=== PATIENT | male | born 1960 | race Caucasian/White ===

== ENCOUNTER → 2017-01-23 | Day surgery (SDC) | payer BC ==
[~2017-01-23] MED LIST: ATOR20TA58 PO; CARI350T PO; CLON0.5T3 PO; HYDR-2766 PO; IV RINGERS,LACTATED 1000ML 1,000 ML IV SCH; LIDOCAINE 1% PF 2 ML VIAL. ID PRN; LIDOCAINE 2% PF Vial for OR 5 ML VIAL. ONE; MIDAZOLAM HCL/PF 2 MG/2 ML VIAL. IV PRN; PROPOFOL 40 ML IV ONE; TRAZ100T12 PO; fentaNYL PF VIAL 100 MCG/2 ML VIAL IV PRN
--- NOTE | 2017-01-23 12:43 | PDOC1 ---
History and Physical Date of Admission Date of Admission DATE: 01/23/17 TIME: 12:38 Source Source: Chart review, Patient History of Present Illness History of Present Illness 56 y/o male here for CRC screening. No prior. Denies abdominal pain, diarrhea , constipation, hematochezia, melena, wt. loss, anorexia, nausea or vomiting. GIFH negative. Occasional heartburn w/o dysphagia. No PUD, GB, liver or pancreatic history. Smokes 4-5 cigs/day. Occasional alcohol/NSAID use. Past Medical History Cardiovascular: Hyperlipidemia Musculoskeletal: low back pain (HNP) Past Surgical History Past Surgical History: Other (lumbar laminectomy with fusion, no hardware) Family History Family History: Other (no significant) Social History Smoke: <1 pack per day ALCOHOL: occassional Drugs: None Current Medications Current Medications Current Medications Midazolam HCl (Versed) 2 mg PRN 1X PRN IV PRIOR TO PROCEDURE; Start 01/23/17 at 12:15; Stop 01/23/17 at 23:00 Fentanyl Citrate (Fentanyl 2ml Vial) 25 mcg PRN Q5MIN PRN IV X 2 DOSES FOR PAIN ; Start 01/23/17 at 12:15; Stop 01/23/17 at 23:00 Fentanyl Citrate (Fentanyl 2ml Vial) 50 mcg PRN Q5MIN PRN IV X 2 DOSES FOR PAIN ; Start 01/23/17 at 12:15; Stop 01/23/17 at 23:00 Ringer's Solution 1,000 ml @ 125 mls/hr Q8H IV Last administered on t 12:04; Start 01/23/17 at 12:04; Stop 01/23/17 at 23:00 Lidocaine HCl (Xylocaine-Mpf 1% Vial) 2 ml 1X PRN PRN ID IV START; Start 01/23 at 12:15; Stop 01/23/17 at 23:00 Propofol 60 ml @ As Directed STK-MED ONCE IV ; Start 01/23/17 at 12:13; Stop 01/23/17 at 12:14; Status DC Lidocaine HCl (Lidocaine Pf 2% Vial) 5 ml STK-MED ONCE .ROUTE ; Start 01/23/17 at 12:13; Stop 01/23/17 at 12:14; Status DC Active Scripts Active Reported Hydrocodone-Apap 10-325 (Hydrocodone Bit/Acetaminophen) 1 Each Tablet 1 Tab PO PRN Q6HRS PRN Soma (Carisoprodol) 350 Mg Tablet 350 Mg PO TID&HS Clonazepam 0.5 Mg Tablet 0.5 Mg PO TID Trazodone Hcl 100 Mg Tablet 100 Mg PO HS Atorvastatin Calcium 20 Mg Tablet 20 Mg PO HS Allergies Allergies: Coded Allergies: No Known Drug Allergies (Unverified , 01/23/17) ROS Review of System Negative save chronic back pain. Physical Exam General: Alert, Oriented X3, Cooperative, No acute distress Lungs: Clear to auscultation Heart: S1S2, RRR, no gallops, no murmurs Abdomen: Normal bowel sounds, Soft, No tenderness, No hepatosplenomegaly, No masses Rectal Exam: deferred (to procedure) Extremities: No cyanosis, No edema Skin: No significant lesion Neuro: Normal speech, Strength at 5/5 X4 ext, Normal tone, Sensation intact, Cranial nerves 3-12 NL, Reflexes 2+ Psych/Mental Status: Mental status NL, Mood NL Vitals Vitals Vital Signs Date Time Temp Pulse Resp B/P (MAP) Pulse Ox O2 Delivery O2 Flow Rate FiO2 01/23/17 12:20 99.0 54 20 97 99.0 VTE Prophylaxis Ordered VTE Prophylaxis Devices: No VTE Pharmacological Prophylaxi: No Assessment/Plan Assessment/Plan IMP: Average risk for CRC. PLAN: Screening colonoscopy. EDIN AGUAYO MD Jan 23, 2017 12:43
--- NOTE | 2017-01-23 13:15 | PDOC4 ---
PROCEDURE Procedure Colonoscopy Ind: Screening, average risk. Meds: per anesthesia Findings: CHANI normal. Scope advanced to cecum. Mucosa normal. No polyps, tics, etc. Internal hemorrhoids on retroflex. Kraen. well. IMP: Internal hemorrhoids, otherwise normal exam. REC: Resume home meds/diet. F/u with me prn. No treatment needed for asymptomatic hemorrhoids. Repeat exam in 10 years for screening. EDIN AGUAYO MD Jan 23, 2017 13:15
[2017-01-23 13:35] VITALS: BP 142/85
== END | disposition home or self-care (01) ==
LOC: ENDOS 11:46
PROVIDERS: ATTEND Internal Medicine Gastroenterology
DX: Z12.11 Encounter for screening for malignant neoplasm of colon (principal); K64.8 Other hemorrhoids; E78.5 Hyperlipidemia, unspecified; E78.00 Pure hypercholesterolemia, unspecified; F41.9 Anxiety disorder, unspecified; F32.9 Major depressive disorder, single episode, unspecified; F17.200 Nicotine dependence, unspecified, uncomplicated; Z72.0 Tobacco use; Z86.69 Personal history of other diseases of the nervous system and sense organs; Z87.39 Personal history of other diseases of the musculoskeletal system and connective tissue
CPT/HCPCS: 45378; J2704; J2001